=== PATIENT | female | born 2000 | race African-American/Black ===

== ENCOUNTER 2024-03-24 14:17 | Emergency (ER) | payer OTHER, SELFPAY ==
--- NOTE | ~2024-03-24 | XR_ITS ---
EXAMINATION: XR abdomen/kub 1V DATE: 03/24/2024 14:58 INDICATION: Right flank pain. TECHNIQUE: A supine view of the abdomen was obtained. COMPARISON: None. FINDINGS: There are no dilated loops of bowel. There is a moderate volume of stool in the colon. A ca lcification in right pelvis is likely a phlebolith. IMPRESSION: 1. No specific etiology for the patient's symptoms. Reviewed, dictated and finalized at location A.
--- NOTE | 2024-03-24 14:20 | ED.FEMALEGU ---
HPI - Female Genitourinary General Chief complaint: Urogenital-Female Stated complaint: UTI Time Seen by Provider: 03/24/24 14:20 Source: patient Mode of arrival: ambulatory Limitations: no limitations History of Present Illness HPI Narrative: Aakash is a 23-year-old female patient presenting to the clinic today with complaints of right-sided back/flank pain. States that the pain is now slightly on the left side over the last day or two. She reports this been ongoing for 1 week. States pain is sharp and constant rates it a 9/10 currently. Has tried taking a muscle relaxer and this put her to sleep but she feels as though it did not really help her back pain. Is concerned that she may have a urinary tract infection and she is having problems with starting her flow of urine. Last menstrual period was March 01. Is sexually active but denies any concern for . Denies any vaginal discharge or odors. 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 She denies any known injuries to her back. Denies any fever, chills, body aches. No past surgical history. No history of kidney stones. Related Data Home Medications Medication Instructions Recorded Confirmed albuterol sulfate 90 mcg/actuation inhalation 03/24/24 aerosol inhaler budesonide-formoterol HFA 80 inhalation 03/24/24 mcg-4.5 mcg/actuation aerosol inhaler (Symbicort) medroxyprogesterone 150 mg/mL mg IM 03/24/24 intramuscular suspension Review of Systems Review of Systems: Pertinent positives per HPI. Patient denies any fever, chills, rash, headache, visual changes, dizziness, cough, runny nose, sore throat, shortness of breath, chest pain, palpitations, nausea, vomiting, diarrhea, constipation, abdominal pain. PMFSH Comments At the time of my signature, I reviewed and agree with the nursing past medical, surgical, social, and family history. There is no relevant family history pertinent to the patient complaint. Exam Narrative: General: Well-developed, obese, in no apparent distress Head: Normocephalic, atraumatic Eyes: Pupils equally round and reactive to light bilaterally, EOM intact, sclera and conjunctive clear, no discharge, lids normal Ears: TMs intact and clear, ear canals clear, no drainage, grossly hearing normal. Nose: Nares patent, no discharge, no inflammation, no sinus tenderness. Mouth: Oropharynx without lesions or masses, good dentition, MMM. Neck: Supple, trachea midline, no enlargement of anterior or posterior cervical nodes, no thyroid masses or goiter palpable. Cardio: Regular rate and rhythm, s1 and s2 normal, no murmur appreciated. Resp: Clear to auscultation bilaterally anteriorly and posteriorly, no rhonchi, rales, wheezing or rubs Abdomen: Soft, pliable, mildly distended per patient, bowel sounds present all 4 quadrants, tenderness to palpation over the right lower quadrant, no organomegaly, positive right CVAT tenderness Musculoskeletal: No deformity, tender to palpation over the right flank musculature, grossly normal range of motion, muscle strength strong and equal, peripheral pulse strong, no edema, no cyanosis, normal gait and station Course Course Emergency Course: Portions of this record may have been created with voice recognition software. Level of Care: Express Care Visit Vital Signs Vital signs: Vital Signs Temperature 37.4 C 03/24/24 14:33 Pulse Rate 87 03/24/24 14:33 Respiratory Rate 16 03/24/24 14:33 Blood Pressure 122/59 L 03/24/24 14:33 Pulse Oximetry 100 03/24/24 14:33 Oxygen Delivery Room Air 03/24/24 14:33 Temperature 37.4 C 03/24/24 14:33 Pulse Rate 87 03/24/24 14:33 Respiratory Rate 16 03/24/24 14:33 Blood Pressure 122/59 L 03/24/24 14:33 Pulse Oximetry 100 03/24/24 14:33 Oxygen Delivery Room Air 03/24/24 14:33 Vital signs reviewed MDM - Female Genitourinary MDM Narrative Medical decision making narrative: At the time of
[2024-03-24 14:33] VITALS: BP 122/59; PULSE 87; RESP 16; TEMP 37.4; O2SAT 100
[2024-03-24 14:58] LABS: BEDSIDEPREGUCG Negative; EDUAAPPEAR Cloudy; EDUABILI Negative; EDUABLOOD 1+; EDUACOLOR1 Yellow; EDUAGLUCOSE Negative; EDUAKETONE Negative; EDUALEUKO Negative; EDUANITRATE Negative; EDUAPROTEIN 2+
== END 2024-03-24 15:15 | disposition home or self-care (01) ==
PROVIDERS: Emergency Provider Nurse Practitioner Family
DX: N12 Tubulo-interstitial nephritis, not specified as acute or chronic (principal); J45.909 Unspecified asthma, uncomplicated
CPT/HCPCS: 74018; 81003; 81025; 87077; 87086; 87088; 87186; 99203; G0463